=== PATIENT | male | born 1980 | race Caucasian/White ===

== ENCOUNTER 2019-02-28 15:29 | Emergency (ER) | payer OTHER, BC ==
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
[2019-02-28 18:18] VITALS: BP 152/89; PULSE 92; RESP 18; TEMP 98.9
== END 2019-02-28 18:00 | disposition home or self-care (01) ==
LOC: EC 15:29
DX: M79.602 Pain in left arm (principal); M19.012 Primary osteoarthritis, left shoulder; M19.022 Primary osteoarthritis, left elbow; M25.512 Pain in left shoulder; M25.522 Pain in left elbow; M25.532 Pain in left wrist; M54.2 Cervicalgia; R51 Headache; V43.52XA Car driver injured in collision with other type car in traffic accident, initial encounter; Y92.410 Unspecified street and highway as the place of occurrence of the external cause
CPT/HCPCS: 70450; 71046; 72125; 99284